=== PATIENT | female | born 1985 | race Caucasian/White ===

== ENCOUNTER → 2018-07-07 | Outpatient (CLI) | payer OTHER ==
[2018-07-07 15:37] LABS: CONTROL LINE HCG INT CTR LINE PRESENT; HCG, SERUM QUALITATIVE NEGATIVE (NEGATIVE)
[2018-07-07 15:46] LABS: ALBUMIN 3.7 GM/DL (3.2-5.2); ALBUMIN/GLOBULIN RATIO 1.16 (1.00-1.93); ALKALINE PHOSPHATASE 60 U/L (45-117); ALT/SGPT 18 U/L (12-78); ANION GAP 6 MEQ/L (8-16); AST/SGOT 11 U/L (7-37); BILIRUBIN,TOTAL 0.3 MG/DL (0.2-1.0); BLOOD UREA NITROGEN 12 MG/DL (7-18); CALCIUM LEVEL 8.9 MG/DL (8.5-10.1); CARBON DIOXIDE LEVEL 29 MEQ/L (21-32); CHLORIDE LEVEL 107 MEQ/L (98-107); CREATININE FOR GFR 0.97 MG/DL (0.55-1.30); GLOMERULAR FILTRATION RATE > 60.0 (>60); GLUCOSE, FASTING 81 MG/DL (70-100); POTASSIUM SERUM 4.3 MEQ/L (3.5-5.1); SODIUM LEVEL 142 MEQ/L (136-145); TOTAL PROTEIN 6.9 GM/DL (6.4-8.2)
[2018-07-07 15:47] LABS: HEMATOCRIT 38.4 % (36.0-47.0); HEMOGLOBIN 12.7 g/dl (12.0-15.5); MEAN CORPUSCULAR HEMOGLOBIN 29.4 pg (27.0-33.0); MEAN CORPUSCULAR HGB CONC 33.1 g/dl (32.0-36.5); MEAN CORPUSCULAR VOLUME 88.9 fl (80.0-96.0); PLATELET COUNT, AUTOMATED 263 10^3/uL (150-450); RED BLOOD COUNT 4.32 10^6/uL (4.00-5.40); RED CELL DISTRIBUTION WIDTH 12.1 % (11.5-14.5); WHITE BLOOD COUNT 4.6 10^3/uL (4.0-10.0)
[2018-07-07 16:09] LABS: HEPATITIS B SURFACE ANTIGEN NEGATIVE (NEGATIVE)
[2018-07-07 16:37] LABS: HEPATITIS C VIRUS ABY INDEX 0.1 INDEX (<0.8); HIV 1&2 SCREEN CENTAUR NEGATIVE (NEGATIVE)
[2018-07-07 16:55] LABS: CHLAMYDIA DNA AMPLIFICATION NEGATIVE (NEGATIVE); GC DNA AMPLIFICATION NEGATIVE (NEGATIVE)
== END ==
LOC: M LAB 14:25
DX: F11.20 Opioid dependence, uncomplicated (principal)
CPT/HCPCS: 93005

== ENCOUNTER 2019-03-02 10:33 | Emergency (ER) | payer OTHER ==
[~2019-03-02] VITALS: Ht 160 cm; Wt 56.9 kg
[2019-03-02] MEDS ORDERED: METH5TA PO (10:51)
[2019-03-02] MEDS ORDERED: METH10TA2 PO (10:51)
[2019-03-02] MEDS ORDERED: metroNIDAZOLE (FLAGYL) 500 MG TAB PO ONE (13:15)
[2019-03-02 13:31] VITALS: BP 113/74
[2019-03-02 14:18] LABS: CHLAMYDIA DNA AMPLIFICATION NEGATIVE (NEGATIVE); GC DNA AMPLIFICATION NEGATIVE (NEGATIVE)
== END 2019-03-02 13:34 | disposition home or self-care (01) ==
LOC: M ED 10:33
DX: O23.599 Infection of other part of genital tract in pregnancy, unspecified trimester (principal); O99.330 Smoking (tobacco) complicating pregnancy, unspecified trimester; O09.529 Supervision of elderly multigravida, unspecified trimester; Z3A.00 Weeks of gestation of pregnancy not specified; Z79.899 Other long term (current) drug therapy

== ENCOUNTER 2019-09-11 11:19 | Outpatient (CLI) | payer OTHER ==
[~2019-09-11] VITALS: Ht 160 cm; Wt 57.7 kg
[~2019-09-11 11:19] MED LIST: METH10TA2 PO; METH5TA PO
--- NOTE | 2019-09-11 12:52 | IPNPDOC ---
Text Note Date of Service The patient was seen on 09/11/19. NOTE Outpatient 34-year-old 10, para [id number] with ARJUN of 10/30/2019. Presents at 32 weeks 6 days with complaints of contractions. Formerly a patient of Dr. Acevedo, she has not been seen in that office since June and has evidently been discharged from his practice. She reports attempting to transfer care. However, her records release was not signed until the end of August. History is significant for 1 labor and delivery per chart at 36 weeks. Patient, however, reports that was at [address] Acevedo's records show poor compliance with care. Minimal weight gain with a 9 pound weight gain from first appointment and only a 6 pound weight gain from her stated prepregnancy weight. She reports tobacco use during this and also a history of oral herpes without current outbreaks. Her chart also reports a history of a positive chlamydia back in May. She is in no apparent distress. Abdomen is soft, gravid, small for dates. Nontender. heart 145. Minimal to moderate variability. Irregular mild uterine irritability. Speculum exam, cervix visually long, thick and closed. Gonorrhea, chlamydia, fibronectin, and group B strep were obtained. Sterile vaginal exam, no presenting part in the pelvis. Cervix is parous long, thick, closed. Will send previously stated cultures, UA, culture, UDS and obtain a transvaginal and growth ultrasound. Keyona Garrett CNM Sep 11, 2019 12:52
[2019-09-11 13:45] LABS: APPEARANCE, URINE CLEAR (CLEAR); BACTERIA, URINE AUTO 1+ (NEGATIVE); BILIRUBIN, URINE AUTO NEGATIVE (NEGATIVE); BLOOD, URINE BLOOD NEGATIVE (NEGATIVE); COLOR, URINE STRAW (YELLOW); GLUCOSE, URINE (UA) AUTO NEGATIVE (NEGATIVE); KETONE, URINE AUTO NEGATIVE (NEGATIVE); LEUKOCYTE ESTERASE, URINE AUTO NEGATIVE (NEGATIVE); NITRITE, URINE AUTO NEGATIVE (NEGATIVE); PROTEIN, URINE AUTO NEGATIVE (NEGATIVE); RBC, URINE AUTO 0 /HPF (0-3); SPECIFIC GRAVITY URINE AUTO 1.006 (1.002-1.035); SQUAMOUS EPITHELIAL CELL UR AU 1 /HPF (0-6); UROBILINOGEN, URINE AUTO 0.2 mg/dL (0.0-2.0); WBC, URINE AUTO 0 /HPF (0-3)
[2019-09-11 14:08] LABS: AMPHETAMINES URINE REFLEX NEGATIVE (NEGATIVE); BARBITURATES URINE REFLEX NEGATIVE (NEGATIVE); BENZODIAZEPINES URINE REFLEX NEGATIVE (NEGATIVE); COCAINE METABOLITE URINE REFLE NEGATIVE (NEGATIVE); OPIATES URINE REFLEX NEGATIVE (NEGATIVE); PHENCYCLIDINE URINE REFLEX NEGATIVE (NEGATIVE)
[2019-09-11 14:11] LABS: CANNABINOIDS URINE REFLEX PENDING CONFIRMATION (NEGATIVE); METHADONE URINE REFLEX PENDING CONFIRMATION (NEGATIVE)
--- NOTE | 2019-09-11 15:01 | IPNPDOC ---
Text Note Date of Service The patient was seen on 09/11/19. NOTE Pt desires discharge "not having contractions" FFN negative. GBS/GC/CT pending. UDS + marijuana and methadone TVUS closed 3cm cervix, no funneling Growth 12% with elevated S/D ratio, 4.66 Discharged home. Pt now has appt Saturday with Dr Amaya BPP ordered for next week Stressed need for daily FKC, stop smoking, adequate food/fluids. Stressed need to continue PN care at this time. Keyona Garrett CNM Sep 11, 2019 15:01
--- NOTE | 2019-09-11 15:03 | REP ---
OB ULTRASOUND: Real-time sonographic evaluation of the gravid uterus performed utilizing transabdominal and endovaginal technique. There is a single living intrauterine gestation. The estimated gestational age is 33 weeks 0 days, EDC 10/30/2019. Today's measurements indicate appropriate growth. BPD 78 mm = 31 weeks 1 day, 22nd percentile HC 284 mm = 31 weeks 1 day, 23rd percentile AC 270 mm = 31 weeks 1 day, 22nd percentile FL 61 mm = 31 weeks 4 days, 28th percentile HC/AC ratio 1.05, within normal range. Estimated weight 1727 grams, 12th percentile. Cervix is closed and measures 3 cm in length. heart rate 141 beats per minute. Amniotic fluid within normal limits, SAMMY 9.1, within normal range of 8.3 to 24.5. S/D ratio 4.66, above normal range of 2.0 to 3.0. RI is 0.79, above normal range of 0.59 to 0.75. SEEN/GROSSLY UNREMARKABLE Lateral ventricles yes Posterior fossa no Upper lip yes Four-chamber heart yes LVOT yes RVOT yes Stomach yes Cord insertion yes Three vessel cord yes Kidneys no Bladder yes Spine no position: Vertex. Placenta: Anterior and grade 1 with no previa or abruption. Please note the estimated gestational age is based on ultrasound from an outside facility. Electronically Signed by Miah Hilliard MD 09/15/2019 08:53 A
[2019-09-14 14:39] LABS: CHLAMYDIA DNA AMPLIFICATION NEGATIVE (NEGATIVE); GC DNA AMPLIFICATION NEGATIVE (NEGATIVE)
[2019-09-17 14:12] LABS: Cannabinoid Positive (.); GC Carboxy THC 92 ng/mL (Cutoff=10); GC Methadone 1755 ng/mL (Cutoff=100); Methadone Positive (.)
== END 2019-09-11 14:55 | disposition home or self-care (01) ==
LOC: M LDO 11:19
PROVIDERS: ATTEND Advanced Practice Midwife
DX: O26.893 Other specified pregnancy related conditions, third trimester (principal); Z3A.32 32 weeks gestation of pregnancy
CPT/HCPCS: 59025; 76811; 76817; 80307; 81001; 82731; 87081; 87086; 87491; 87591; G0480

== ENCOUNTER 2019-09-23 11:31 | Outpatient (CLI) | payer OTHER ==
[~2019-09-23] VITALS: Ht 160 cm; Wt 61.0 kg
--- NOTE | 2019-09-23 14:26 | REP ---
OB ULTRASOUND/ BIOPHYSICAL PROFILE: Real-time sonographic evaluation of the gravid uterus is performed. There is a single living intrauterine gestation. The estimated gestational age is reportedly 33 weeks 1 day based on the first ultrasound, EDC 11/10/2019. Cervix is closed and measures 3.8 cm in length. heart rate 139 beats per minute. Amniotic fluid within normal limits. SAMMY 10.9 within normal range of 8.0-24.9. Biophysical profile score is 8/8. S/D ratio 3.44 is above normal range of 2.0-3.0. RI 0.71 is within normal range of 0.59 to 0.75. position is vertex. Placenta is anterior and grade 3 with no previa or abruption. Electronically Signed by Miah Hilliard MD 09/25/2019 12:50 A
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
== END 2019-09-23 14:55 | disposition home or self-care (01) ==
LOC: M LDO 11:31
PROVIDERS: ATTEND Advanced Practice Midwife
DX: Z36.89 Encounter for other specified antenatal screening (principal); O99.333 Smoking (tobacco) complicating pregnancy, third trimester; F17.210 Nicotine dependence, cigarettes, uncomplicated; O09.513 Supervision of elderly primigravida, third trimester; Z87.898 Personal history of other specified conditions; Z3A.34 34 weeks gestation of pregnancy

== ENCOUNTER → 2019-09-24 | Outpatient (CLI) | payer OTHER ==
[~2019-09-24] MED LIST changes: +IBUP80TA PO; +METH10CO3 PO; +PERCOCET PO; +PRENTAB9 PO
--- NOTE | 2019-10-09 17:18 | REP ---
Obstetric ultrasound for growth: There is a single intrauterine gestation in a vertex presentation. There is movement and cardiac activity. The heart rate is 153 beats per minute. The placenta is anterior. There is no placenta previa or abruptio. The placenta is grade II. The amniotic fluid volume subjectively is normal. The amniotic fluid index is 9.0/7.5 - 24.4. The cervix measures 2.5 cm length. Gestational age by today's ultrasound is 33 weeks 5 days/ARJUN 11/22/2019. Gestational age by the first ultrasound is 35 weeks 3 days/ARJUN 11/10/2019. Gestational age by LMP is 37 weeks zero days'/ARJUN 10/30/2019. weight is 2372 grams/5 pounds, 3 ounces. This is the 9th percentile for 37 weeks 0 days. biophysical profile: Breathing 2.0 Movement 2.0 Tone 2.0 AFV 2.0 Total 8.0 / 8.0 Umbilical artery Doppler assessment: S/D ratio 3.54 (2.30-3.30) Resistive Index 0.717 (0.59-0.75 Diastolic Velocity 17.3 (>10 cm/sec) Middle cerebral artery Doppler assessment: PSV: 43.3 cm/sec. EDV: 14.3 cm/sec S/D: 3.17 RI: 0.68 Med PSV: 56 x 1 cm/sec . MoM 0.81 (<1.5) Electronically Signed by Miah Cordero MD 10/09/2019 05:09 P
== END ==
LOC: M RAD 06:30
PROVIDERS: ATTEND Advanced Practice Midwife
DX: O09.213 Supervision of pregnancy with history of pre-term labor, third trimester (principal); O26.843 Uterine size-date discrepancy, third trimester; Z3A.37 37 weeks gestation of pregnancy

== ENCOUNTER → 2019-10-09 | Outpatient (CLI) | payer OTHER | LOC: M RAD 14:41 | PROVIDERS: ATTEND Advanced Practice Midwife | DX: O09.213 Supervision of pregnancy with history of pre-term labor, third trimester (principal); O26.843 Uterine size-date discrepancy, third trimester; Z3A.33 33 weeks gestation of pregnancy ==

== ENCOUNTER 2019-10-14 13:24 | Inpatient (IN) | payer OTHER ==
[~2019-10-14] VITALS: Ht 160 cm; Wt 61.2 kg
[~2019-10-14 13:24] MED LIST changes: -IBUP80TA PO; -METH10CO3 PO; -PERCOCET PO; -PRENTAB9 PO
[2019-10-14 14:37] VITALS: BP 131/84
[2019-10-14] MEDS ORDERED: METH10CO3 PO (14:43)
[2019-10-14] MEDS ORDERED: PRENTAB9 PO (14:43)
[2019-10-14] MEDS ORDERED: BICITRA 30ML SOLN UDC PO ONE (15:00)
[2019-10-14] MEDS ORDERED: ceFAZolin SOD 2 GM in IV 1 EA IV ONE (15:00)
[2019-10-14] MEDS ORDERED: LR 1,000 ML IV ONE (15:30)
[2019-10-14 16:03] LABS: HEMATOCRIT 34.7 % (36.0-47.0); HEMOGLOBIN 11.5 g/dl (12.0-15.5); MEAN CORPUSCULAR HEMOGLOBIN 29.6 pg (27.0-33.0); MEAN CORPUSCULAR HGB CONC 33.1 g/dl (32.0-36.5); MEAN CORPUSCULAR VOLUME 89.2 fl (80.0-96.0); PLATELET COUNT, AUTOMATED 247 10^3/uL (150-450); RED BLOOD COUNT 3.89 10^6/uL (4.00-5.40); WHITE BLOOD COUNT 8.6 10^3/uL (4.0-10.0)
[2019-10-14 16:23] LABS: AMPHETAMINES URINE REFLEX NEGATIVE (NEGATIVE); BARBITURATES URINE REFLEX NEGATIVE (NEGATIVE); BENZODIAZEPINES URINE REFLEX NEGATIVE (NEGATIVE); COCAINE METABOLITE URINE REFLE NEGATIVE (NEGATIVE); OPIATES URINE REFLEX NEGATIVE (NEGATIVE); PHENCYCLIDINE URINE REFLEX NEGATIVE (NEGATIVE)
[2019-10-14 16:25] LABS: CANNABINOIDS URINE REFLEX PENDING CONFIRMATION (NEGATIVE); METHADONE URINE REFLEX PENDING CONFIRMATION (NEGATIVE)
[2019-10-14] MEDS ORDERED: LR 1,000 ML IV SCH ×2 (16:30→21:48)
[2019-10-14 16:55] VITALS: BP 136/79
[2019-10-14 18:48] VITALS: BP 122/72
[2019-10-14] MEDS ORDERED: MORPHINE PRES-FREE INJ 10 MG/10 ML VIAL (J2274) As Ordered ONE (19:44)
[2019-10-14] MEDS ORDERED: diphenhydrAMINE INJ 50MG/ML VIAL (J1200) IV PRN (20:40)
[2019-10-14] MEDS ORDERED: METOCLOPRAMIDE INJ 10MG/2ML VIAL (J2765) IV PRN (20:40)
[2019-10-14] MEDS ORDERED: NALBUPHINE HCL 10 MG/ML AMP (J2300) IV PRN (20:40)
[2019-10-14] MEDS ORDERED: ONDANSETRON 4MG/2ML VIAL (J2405) IV PRN ×3 (20:40→22:00)
[2019-10-14] MEDS ORDERED: NALOXONE INJ 0.4 MG/1 ML VIAL (J2310) IV PRN ×2 (20:40)
[2019-10-14] MEDS ORDERED: ONDANSETRON 4MG/2ML VIAL (J2405) As Ordered ONE ×2 (20:51→21:08)
[2019-10-14] MEDS ORDERED: dexameTHASONE 4 MG/ML 1ML VIAL (J1100) As Ordered ONE (20:51)
[2019-10-14] MEDS ORDERED: PHENYLephrine HCL 500 MCG/5 ML (100MCG/ML) SYRINGE (J2370) As Ordered ONE ×2 (21:12→21:19)
[2019-10-14] MEDS ORDERED: OXYTOCIN INJ 10 UNITS/ML VIAL (J2590) As Ordered ONE (21:35)
[2019-10-14] MEDS ORDERED: KETOROLAC 60 MG/2 ML VIAL (J1885) As Ordered ONE (21:38)
[2019-10-14] MEDS ORDERED: oxyCODONE 5MG TAB PO PRN (21:45)
[2019-10-14] MEDS ORDERED: fentaNYL 100 MCG/2 ML INJECTION (J3010) IV PRN (21:45)
[2019-10-14] MEDS ORDERED: KETOROLAC 30 MG/ML VIAL (J1885) IV PRN (21:45)
[2019-10-14] MEDS ORDERED: OXYTOCIN DRIP 30 UNITS in IV 1 EA IV SCH (21:48)
[2019-10-14] MEDS ORDERED: PROMETHAZINE 25 MG TAB PO PRN (22:00)
[2019-10-14] MEDS ORDERED: MEASLES,MUMPS,RUBELLA VACCINE INJ (MMR-II) (90707) SC SCH (22:00)
[2019-10-14] MEDS ORDERED: ACETAMINOPHEN 500 MG TAB PO PRN (22:00)
[2019-10-14] MEDS ORDERED: RHOGAM 300 MCG (1500 IU) INJ (J2790) IM SCH (22:00)
[2019-10-14] MEDS ORDERED: PERCOCET 5MG/325MG TAB PO PRN (22:00)
[2019-10-14] MEDS ORDERED: OXYTOCIN 30 UNITS IN 0.9% NaCl 500ML IV BAG (J2590) As Ordered ONE (22:08)
[2019-10-15] VITALS (9 sets, daily range): BP systolic 111–161; BP diastolic 61–87
[2019-10-15] MEDS: PERCOCET 5MG/325MG TAB PO PRN ×3 (00:11→18:21)
[2019-10-15] MEDS: KETOROLAC 30 MG/ML VIAL (J1885) IV SCH ×3 (04:02→15:58)
[2019-10-15 07:20] LABS: HEMATOCRIT 28.1 % (36.0-47.0); HEMOGLOBIN 9.6 g/dl (12.0-15.5); MEAN CORPUSCULAR HEMOGLOBIN 29.9 pg (27.0-33.0); MEAN CORPUSCULAR HGB CONC 34.2 g/dl (32.0-36.5); MEAN CORPUSCULAR VOLUME 87.5 fl (80.0-96.0); PLATELET COUNT, AUTOMATED 218 10^3/uL (150-450); RED BLOOD COUNT 3.21 10^6/uL (4.00-5.40); WHITE BLOOD COUNT 9.4 10^3/uL (4.0-10.0)
[2019-10-15] MEDS ORDERED: ADACEL/BOOSTRIX VACCINE (DIPHTH/PERTUSS/ACELL/TETANUS)0.5ML SYR (90715) IM ONE (09:00)
[2019-10-15] MEDS: PRENATAL VITAMINS CHEWABLE TABLET PO SCH (09:21)
[2019-10-15] MEDS: DOCUSATE SODIUM 100 MG CAP PO SCH ×2 (09:22→21:00)
[2019-10-15] MEDS: METHADONE 10 MG TAB (S0109) PO SCH (10:05)
[2019-10-15] MEDS: IBUPROFEN 800 MG TAB PO SCH (23:54)
[2019-10-16] MEDS: PERCOCET 5MG/325MG TAB PO PRN (01:21)
[2019-10-16 02:28] VITALS: BP 121/75
[2019-10-16 05:48] VITALS: BP 135/80
[2019-10-16] MEDS ORDERED: IBUP80TA PO (08:07)
[2019-10-16] MEDS ORDERED: PERCOCET PO (08:07)
[2019-10-16] MEDS: PRENATAL VITAMINS CHEWABLE TABLET PO SCH (09:05)
[2019-10-16] MEDS: METHADONE 10 MG TAB (S0109) PO SCH (09:05)
[2019-10-16] MEDS: DOCUSATE SODIUM 100 MG CAP PO SCH (09:05)
[2019-10-16] MEDS: IBUPROFEN 800 MG TAB PO SCH (09:08)
[2019-10-19 00:07] LABS: Cannabinoid Positive (.); GC Carboxy THC 66 ng/mL (Cutoff=10); GC Methadone 2380 ng/mL (Cutoff=100); Methadone Positive (.)
== END 2019-10-16 15:00 | disposition home or self-care (01) | DRG 540 ==
LOC: M LDI 13:24 → UNDOADMIN 13:24 → M LDI 13:57 → M OBS 23:37
PROVIDERS: ADMIT Obstetrics & Gynecology; ATTEND Obstetrics & Gynecology
PROC: 10D00Z1 Extraction of Products of Conception, Low, Open Approach (ICD-10-PCS; principal; 2019-10-14 20:57)
DX: O98.32 Other infections with a predominantly sexual mode of transmission complicating childbirth (principal); Z3A.37 37 weeks gestation of pregnancy; Z37.0 Single live birth; A60.09 Herpesviral infection of other urogenital tract; O36.5930 Maternal care for other known or suspected poor fetal growth, third trimester, not applicable or unspecified; O99.334 Smoking (tobacco) complicating childbirth; F17.210 Nicotine dependence, cigarettes, uncomplicated; Z91.14 Patient's other noncompliance with medication regimen

== ENCOUNTER → 2020-04-01 | Outpatient (CLI) | payer OTHER ==
[~2020-04-01] MED LIST changes: +IBUP80TA PO; +METH10CO3 PO; +PERCOCET PO; +PRENTAB9 PO
[2020-04-01 10:42] LABS: HEMATOCRIT 44.2 % (36.0-47.0); HEMOGLOBIN 14.7 g/dl (12.0-15.5); MEAN CORPUSCULAR HEMOGLOBIN 29.4 pg (27.0-33.0); MEAN CORPUSCULAR HGB CONC 33.3 g/dl (32.0-36.5); MEAN CORPUSCULAR VOLUME 88.4 fl (80.0-96.0); PLATELET COUNT, AUTOMATED 233 10^3/uL (150-450); WHITE BLOOD COUNT 5.5 10^3/uL (4.0-10.0)
[2020-04-01 11:07] LABS: ALBUMIN 3.9 GM/DL (3.2-5.2); ALT/SGPT 45 U/L (12-78); BILIRUBIN,TOTAL 0.3 MG/DL (0.2-1.0); BLOOD UREA NITROGEN 11 MG/DL (7-18); CALCIUM LEVEL 9.2 MG/DL (8.5-10.1); CARBON DIOXIDE LEVEL 29 MEQ/L (21-32); CHLORIDE LEVEL 105 MEQ/L (98-107); CREATININE FOR GFR 0.84 MG/DL (0.55-1.30); GLOMERULAR FILTRATION RATE > 60.0 (>60); GLUCOSE, FASTING 103 MG/DL (70-100); POTASSIUM SERUM 4.2 MEQ/L (3.5-5.1); SODIUM LEVEL 138 MEQ/L (136-145); TOTAL PROTEIN 7.1 GM/DL (6.4-8.2)
[2020-04-01 11:26] LABS: HEPATITIS B SURFACE ANTIGEN NEGATIVE (NEGATIVE)
[2020-04-01 11:54] LABS: HEPATITIS C VIRUS ABY INDEX 0.1 INDEX (<0.8); HIV 1&2 SCREEN CENTAUR NEGATIVE (NEGATIVE)
[2020-04-01 12:04] LABS: CHLAMYDIA DNA AMPLIFICATION NEGATIVE (NEGATIVE); GC DNA AMPLIFICATION NEGATIVE (NEGATIVE)
--- NOTE | 2020-04-01 16:04 | ECGEPIP ---
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
== END ==
LOC: M LAB 10:06
PROVIDERS: ATTEND Family Medicine
DX: F11.20 Opioid dependence, uncomplicated (principal)

== ENCOUNTER 2020-08-01 12:47 | Emergency (ER) | payer OTHER ==
[~2020-08-01] VITALS: Ht 160 cm; Wt 54.4 kg
[2020-08-01 12:49] VITALS: BP 137/79
[2020-08-01] MEDS ORDERED: cefTRIAXone SOD 250MG VIAL (J0696 PER 250MG) IM ONE (15:00)
[2020-08-01] MEDS ORDERED: LIDOCAINE 1% SDV 5ML VIAL DILUENT ONE (15:00)
[2020-08-01] MEDS ORDERED: AZITHROMYCIN 250MG TABLET PO ONE (15:00)
[2020-08-01] MEDS ORDERED: DIFL150T PO (15:21)
[2020-08-01 15:26] LABS: HEPATITIS A ANTIBODY IGM NEGATIVE (NEGATIVE); HEPATITIS B CORE ANTIBODY IGM NEGATIVE (NEGATIVE); HEPATITIS B SURFACE ANTIGEN NEGATIVE (NEGATIVE); HEPATITIS C VIRUS ABY INDEX 0.2 INDEX (<0.8)
[2020-08-01 16:34] LABS: CHLAMYDIA DNA AMPLIFICATION POSITIVE (NEGATIVE); GC DNA AMPLIFICATION POSITIVE (NEGATIVE)
== END 2020-08-01 15:22 | disposition home or self-care (01) ==
LOC: M ED 12:47
DX: Z11.3 Encounter for screening for infections with a predominantly sexual mode of transmission (principal); J45.909 Unspecified asthma, uncomplicated; Z86.718 Personal history of other venous thrombosis and embolism; F17.200 Nicotine dependence, unspecified, uncomplicated; Z79.899 Other long term (current) drug therapy
CPT/HCPCS: 86705; 86709; 86780; 86803; 87210; 87340; 87661; 96372; 99284; J0696

== ENCOUNTER 2020-08-23 07:57 | Emergency (ER) | payer OTHER ==
[~2020-08-23] VITALS: Ht 160 cm; Wt 53.7 kg
[~2020-08-23 07:57] MED LIST changes: +DIFL150T PO
[2020-08-23 07:59] VITALS: BP 114/63
[2020-08-23] MEDS ORDERED: METH10TA2 PO (08:08)
[2020-08-23] MEDS ORDERED: ACETAMINOPHEN 325 MG TAB PO ONE (08:45)
[2020-08-23] MEDS ORDERED: NS 1,000 ML IV ONE (08:45)
[2020-08-23 09:24] LABS: BASO % 0.3 % (0.0-1.0); EOS # 0.1 10^3/uL (0.0-0.5); EOS % 0.5 % (0.0-3.0); HEMATOCRIT 39.3 % (36.0-47.0); HEMOGLOBIN 13.3 g/dl (12.0-15.5); LYMPH # 1.8 10^3/uL (1.5-5.0); LYMPH % 13.7 % (24.0-44.0); MEAN CORPUSCULAR HEMOGLOBIN 30.2 pg (27.0-33.0); MEAN CORPUSCULAR HGB CONC 33.8 g/dl (32.0-36.5); MEAN CORPUSCULAR VOLUME 89.3 fl (80.0-96.0); MONO # 0.6 10^3/uL (0.0-0.8); MONO % 4.3 % (0.0-5.0); NEUTROPHILS # 10.4 10^3/uL (1.5-8.5); NEUTROPHILS % 80.8 % (36.0-66.0); PLATELET COUNT, AUTOMATED 255 10^3/uL (150-450); WHITE BLOOD COUNT 12.9 10^3/uL (4.0-10.0)
[2020-08-23] MEDS ORDERED: KETOROLAC 30 MG/ML 1ML VIAL IV ONE (09:30)
[2020-08-23 10:00] LABS: ALBUMIN 3.7 GM/DL (3.2-5.2); BILIRUBIN,DIRECT 0.2 MG/DL (0.0-0.2); BILIRUBIN,TOTAL 0.5 MG/DL (0.2-1.0); TOTAL PROTEIN 6.7 GM/DL (6.4-8.2)
--- NOTE | 2020-08-23 11:02 | REPVR ---
PROCEDURE INFORMATION: Exam: CT Abdomen And Pelvis Without Contrast Exam date and time: 08/23/2020 10:31 AM Age: 35 years old Clinical indication: Abdominal pain; Generalized; Additional info: B/l low back/flank pain, hematuria, h/o kidney stones TECHNIQUE: Imaging protocol: Computed tomography of the abdomen and pelvis without contrast. Radiation optimization: All CT scans at this facility use at least one of these dose optimization techniques: automated exposure control; mA and/or kV adjustment per patient size (includes targeted exams where dose is matched to clinical indication); or iterative reconstruction. COMPARISON: US OBS FOLL UP OR REPEAT EACH GES 10/09/2019 3:21 PM FINDINGS: Liver: Normal. No mass. Gallbladder and bile ducts: Normal. No calcified stones. No ductal dilation. Pancreas: Normal. No ductal dilation. Spleen: The spleen demonstrates several small calcifications consistent with healed granulomatous disease. Adrenals: Normal. No mass. Kidneys and ureters: Right renal calculi (approximately 16), the largest in the anterior lower pole measuring approximately 3.9 mm. Left renal calculi (approximately 10), the largest in the anterolateral mid kidney measuring 2.8 mm. No evidence of obstructive uropathy. 13 mm left renal upper pole probable benign cyst, additional 8.5 mm left renal probable benign cyst. Right renal 8 mm probable benign cyst. Left renal 12 mm benign parapelvic cyst. Stomach and bowel: Unremarkable. No obstruction. No mucosal thickening. Appendix: The vermiform appendix is not identified on this examination. There is, however, no pericecal abnormality to suggest appendicitis. Intraperitoneal space: Unremarkable. No free air. No significant fluid collection. Vasculature: Unremarkable. No abdominal aortic aneurysm. Lymph nodes: No enlarged lymph nodes. Bladder: The urinary bladder is decompressed and difficult to assess. No calculi. Reproductive: Unremarkable as visualized. Bones/joints: L4-L5 degenerative disc disease. Soft tissues: Unremarkable. IMPRESSION: 1. Bilateral renal calyceal lithiasis. 2. Bilateral renal probable benign cysts. 3. Left renal benign parapelvic cyst. Electronically signed by: Erik Genao On 08/23/2020 11:02:32 AM
== END 2020-08-23 10:42 | disposition left against medical advice (07) ==
LOC: M ED 07:57
DX: Z87.442 Personal history of urinary calculi (principal); Z87.448 Personal history of other diseases of urinary system; J45.909 Unspecified asthma, uncomplicated; F17.200 Nicotine dependence, unspecified, uncomplicated; Z53.9 Procedure and treatment not carried out, unspecified reason; Z79.899 Other long term (current) drug therapy
CPT/HCPCS: 36415; 74176; 80047; 80076; 81001; 83690; 84702; 85025; 87088; 87186; 96361; 96374; 99284; J1885

== ENCOUNTER → 2020-09-14 | Outpatient (REF) | payer OTHER ==
[2020-09-14 17:28] LABS: BASO % 0.6 % (0.0-1.0); EOS % 0.6 % (0.0-3.0); HEMATOCRIT 41.2 % (36.0-47.0); LYMPH # 2.7 10^3/uL (1.5-5.0); LYMPH % 39.6 % (24.0-44.0); MEAN CORPUSCULAR HEMOGLOBIN 30.4 pg (27.0-33.0); MEAN CORPUSCULAR VOLUME 89.4 fl (80.0-96.0); MONO # 0.3 10^3/uL (0.0-0.8); MONO % 4.3 % (0.0-5.0); NEUTROPHILS # 3.7 10^3/uL (1.5-8.5); NEUTROPHILS % 54.8 % (36.0-66.0); PLATELET COUNT, AUTOMATED 310 10^3/uL (150-450); RED BLOOD COUNT 4.61 10^6/uL (4.00-5.40); WHITE BLOOD COUNT 6.7 10^3/uL (4.0-10.0)
[2020-09-14 17:30] LABS: HEMOGLOBIN A1c 5.4 %
[2020-09-14 17:41] LABS: ALBUMIN 4.1 GM/DL (3.2-5.2); ALT/SGPT 20 U/L (12-78); BILIRUBIN,TOTAL 0.4 MG/DL (0.2-1.0); BLOOD UREA NITROGEN 12 MG/DL (7-18); CALCIUM LEVEL 8.9 MG/DL (8.5-10.1); CARBON DIOXIDE LEVEL 27 MEQ/L (21-32); CHLORIDE LEVEL 104 MEQ/L (98-107); CHOLESTEROL LEVEL 197 MG/DL (<200); CHOLESTEROL RISK RATIO 2.814 (<5); CREATININE FOR GFR 0.86 MG/DL (0.55-1.30); FERRITIN 12 NG/ML (8-252); FREE T4 0.98 NG/DL (0.76-1.46); GLOMERULAR FILTRATION RATE > 60.0 (>60); GLUCOSE, FASTING 96 MG/DL (70-100); HDL CHOLESTEROL 70 MG/DL (>40); IRON (FE) 69 UG/DL (50-170); LDL CHOLESTEROL 118 MG/DL (<100); NON-HDL-C 127 MG/DL; POTASSIUM SERUM 4.8 MEQ/L (3.5-5.1); SODIUM LEVEL 136 MEQ/L (136-145); TOTAL PROTEIN 7.3 GM/DL (6.4-8.2); TRIGLYCERIDES LEVEL 47 MG/DL (<150)
[2020-09-14 17:43] LABS: TOTAL 25(OH) VITAMIN D 17.1 NG/ML (30.0-100.0); VITAMIN B12 LEVEL 1015 PG/ML (247-911)
[2020-09-14 17:44] LABS: FOLATE 3.3 NG/ML (>5.4)
[2020-09-14 18:53] LABS: APPEARANCE, URINE HAZY (CLEAR); BACTERIA, URINE AUTO 1+ (NEGATIVE); BILIRUBIN, URINE AUTO NEGATIVE (NEGATIVE); BLOOD, URINE BLOOD 2+ (NEGATIVE); COLOR, URINE YELLOW (YELLOW); GLUCOSE, URINE (UA) AUTO NEGATIVE (NEGATIVE); KETONE, URINE AUTO NEGATIVE (NEGATIVE); LEUKOCYTE ESTERASE, URINE AUTO 3+ (NEGATIVE); MUCUS, URINE SMALL (NEGATIVE); NITRITE, URINE AUTO NEGATIVE (NEGATIVE); PROTEIN, URINE AUTO NEGATIVE (NEGATIVE); RBC, URINE AUTO 12 /HPF (0-3); SPECIFIC GRAVITY URINE AUTO 1.015 (1.002-1.035); SQUAMOUS EPITHELIAL CELL UR AU 0 /HPF (0-6); UROBILINOGEN, URINE AUTO 0.2 mg/dL (0.0-2.0); WBC, URINE AUTO 81 /HPF (0-3)
== END ==
LOC: M LAB REF 16:21
PROVIDERS: ATTEND Nurse Practitioner Family
DX: R31.9 Hematuria, unspecified (principal); Z13.29 Encounter for screening for other suspected endocrine disorder; Z13.9 Encounter for screening, unspecified; R30.0 Dysuria

== ENCOUNTER → 2021-02-22 | Outpatient (REF) | payer OTHER ==
[2021-02-22 13:45] LABS: HEMATOCRIT 38.4 % (36.0-47.0); HEMOGLOBIN 12.7 g/dl (12.0-15.5); MEAN CORPUSCULAR HEMOGLOBIN 29.3 pg (27.0-33.0); MEAN CORPUSCULAR HGB CONC 33.1 g/dl (32.0-36.5); MEAN CORPUSCULAR VOLUME 88.5 fl (80.0-96.0); PLATELET COUNT, AUTOMATED 251 10^3/uL (150-450); RED BLOOD COUNT 4.34 10^6/uL (4.00-5.40); WHITE BLOOD COUNT 7.6 10^3/uL (4.0-10.0)
[2021-02-22 14:51] LABS: HEPATITIS C VIRUS ABY INDEX < 0.0 INDEX (<0.8); HIV 1&2 SCREEN CENTAUR NEGATIVE (NEGATIVE)
== END ==
LOC: M PLALAB 10:46
PROVIDERS: ATTEND Obstetrics & Gynecology
DX: O09.41 Supervision of pregnancy with grand multiparity, first trimester (principal)

== ENCOUNTER → 2021-04-20 | Outpatient (CLI) | payer OTHER ==
--- NOTE | 2021-04-20 10:04 | REP ---
INDICATION: ANATOMY COMPARISON: None. TECHNIQUE: Transabdominal obstetrical ultrasound with color Doppler evaluation. FINDINGS: Examination demonstrates a single live intrauterine in breech presentation. motion is identified by technologist. Placenta is noted anterior and grade 0 without evidence for placenta previa or abruption. Amniotic fluid volume is normal. Cervix measures 3.1 cm in length and appears closed.. Gestational age by LMP 19 weeks 2 days with ARJUN 09/12/2021. Gestational age by current measurements 19 weeks 1 day with ARJUN 09/13/2021. FHR equals 149 beats per minute. Estimated weight 297 grams (60thpercentile). Anatomical assessment demonstrates normal structures including cranium, choroid plexus, cavum, cerebellum/posterior fossa, facial features, lungs, four-chamber heart, diaphragm, stomach, cord insertion/three-vessel cord, kidneys/bladder, and extremities. IMPRESSION: 1. Single live intrauterine in breech presentation demonstrating appropriate estimated weight. 2. Limited evaluation of the spine and echogenic focus in the left cardiac ventricle may warrant follow-up. Remainder of the anatomical assessment is complete and normal. <Electronically signed by Prashanth Muhammad > 04/20/21 1000
== END ==
LOC: M WHC 08:03
PROVIDERS: ATTEND Obstetrics & Gynecology
DX: O09.522 Supervision of elderly multigravida, second trimester (principal); O32.1XX0 Maternal care for breech presentation, not applicable or unspecified; Z3A.19 19 weeks gestation of pregnancy

== ENCOUNTER 2021-05-15 13:44 | Emergency (ER) | payer OTHER ==
[2021-05-15 13:44] VITALS: BP 147/86
[~2021-05-15 13:44] MED LIST changes: +METH-1177 PO; -METH10TA2 PO
== END 2021-05-15 14:09 | disposition admitted as inpatient to this hospital (09) ==
LOC: M ED 13:44
DX: Z53.21 Procedure and treatment not carried out due to patient leaving prior to being seen by health care provider (principal)

== ENCOUNTER 2021-05-15 14:04 | Outpatient (CLI) | payer SELFPAY ==
[~2021-05-15] VITALS: Ht 160 cm; Wt 52.6 kg
[~2021-05-15 14:04] MED LIST changes: -METH-1177 PO; +METH10TA2 PO
[2021-05-15 14:23] VITALS: BP 127/71
[2021-05-15] MEDS ORDERED: LACTATED RINGER'S 1000 ML IV ONE (14:30)
[2021-05-15] MEDS ORDERED: ACETAMINOPHEN 500 MG TAB PO PRN (15:15)
--- NOTE | 2021-05-15 15:17 | IPNPDOC ---
Text Note Date of Service The patient was seen on 05/15/21. NOTE Subjective: OB Hx: PMHx: Surgical Hx: FHx: Social Hx: Objective: VS, labs, and renal sono: see below. General: Alert Respiratory: Regular rate and rhythm Abdomen: gravid with fundus 2 finger-breaths above umbilicus, soft and not tender to touch Musculoskeletal: +CVA tenderness right flank Assessment: IUP at 22.6 weeks gestation, kidney stones Plan: Reviewed findings with Dr. Acevedo and plan formulated. Start saline lock, urine obtained, LR 1 liter bolus then at 125/hr, renal sono, Toradol IV every 6 hours to help with pain and Tylenol PO due to Methadone use. Zofran ordered IV for nausea. Flomax to be started. GRACIELA MELO CNM May 15, 2021 15:17
[2021-05-15 15:32] LABS: HEMATOCRIT 39.1 % (36.0-47.0); HEMOGLOBIN 13.4 g/dl (12.0-15.5); MEAN CORPUSCULAR HEMOGLOBIN 30.7 pg (27.0-33.0); MEAN CORPUSCULAR HGB CONC 34.3 g/dl (32.0-36.5); MEAN CORPUSCULAR VOLUME 89.7 fl (80.0-96.0); PLATELET COUNT, AUTOMATED 309 10^3/uL (150-450); RED BLOOD COUNT 4.36 10^6/uL (4.00-5.40); WHITE BLOOD COUNT 14.8 10^3/uL (4.0-10.0)
[2021-05-15] MEDS: ONDANSETRON 4MG/2ML VIAL IV PRN ×2 (15:33→19:12)
[2021-05-15] MEDS: KETOROLAC 30 MG/ML 1ML VIAL IV SCH ×2 (15:33→21:55)
[2021-05-15] MEDS: LR 1,000 ML IV SCH ×2 (15:33→22:30)
--- NOTE | 2021-05-15 15:46 | REP ---
INDICATION: right flank pain with hematuria. COMPARISON: None. TECHNIQUE: Bilateral renal ultrasound FINDINGS: Multiple ultrasonographic images of the right kidney show the right kidney to measure 11.9 x 6.4 x 6.1 cm. The renal cortical echotexture is unremarkable. There are no masses. There is good corticomedullary differentiation. There is mild hydronephrosis. There are no perinephric fluid collections. There is an echogenic focus seen in the inferior pole measuring 6 mm. The right renal RI is 0.59 Multiple ultrasonographic images of the left kidney show the left kidney to measure 11.9 x 5.4 x 5.7 cm . The renal cortical echotexture is unremarkable. There are no masses. There is a 1.5 cm sized anechoic structure seen in the superior pole region which exhibits posterior wall enhancement and increased through transmission without septations or this mural nodules. The technologist has also measured a tiny dilated calyx measuring 5 mm could represent a tiny cyst. There is good corticomedullary differentiation. There is no hydronephrosis. There are no perinephric fluid collections. The left renal RI is 0.65 IMPRESSION: 1. Mild right-sided hydronephrosis etiology uncertain. Follow-up is suggested. There is a 6 mm size calculus in the inferior pole. 2. Simple left renal cyst. <Electronically signed by Luis Carlos Frederick > 05/15/21 2078
[2021-05-15 17:27] VITALS: BP 111/57
[2021-05-15] MEDS ORDERED: ACETAMINOPHEN *IV* 1,000 MG in IV 1 EA IV ONE (18:00)
[2021-05-15] MEDS ORDERED: ACETAMINOPHEN 1000MG 100ML IV BTL (OFIRMEV) (J0131 PER 10MG) As Ordered ONE (18:08)
[2021-05-15] MEDS: TAMSULOSIN 0.4 MG CAP PO SCH (20:49)
[2021-05-15] MEDS: PROMETHAZINE INJ 25 MG/ML VIAL (J2550) IV PRN (22:48)
[2021-05-15 23:09] VITALS: BP 118/71
[2021-05-15] MEDS ORDERED: METHADONE 10 MG TAB (S0109) PO ONE ×2 (23:50→23:55)
[2021-05-15] MEDS ORDERED: cefTRIAXone SOD 2 GM in D5W MINI-BAG PLUS 50 ML IV ONE (23:50)
[2021-05-16 03:44] VITALS: BP 135/85
[2021-05-16] MEDS: ONDANSETRON 4MG/2ML VIAL IV PRN ×2 (03:48→09:38)
[2021-05-16] MEDS: KETOROLAC 30 MG/ML 1ML VIAL IV SCH ×2 (03:52→09:39)
[2021-05-16] MEDS: PROMETHAZINE INJ 25 MG/ML VIAL (J2550) IV PRN (07:17)
[2021-05-16 08:16] VITALS: BP 123/62
[2021-05-16] MEDS: TAMSULOSIN 0.4 MG CAP PO SCH (08:16)
[2021-05-16] MEDS: LR 1,000 ML IV SCH (08:17)
--- NOTE | 2021-05-16 09:37 | IPNPDOC ---
Obstetrical Progress Note Date of Service May 16, 2021 Subjective 36 yo at 23 0/7 weeks with right renal stone noted on ultrasound .Her right flank pain has resolved overnight. Her urine is not just slightly blood tinged. Objective Vital Signs Date Time Temp Pulse Resp B/P (MAP) Pulse Ox O2 Delivery O2 Flow Rate FiO2 05/16/21 08:16 99.0 80 18 123/62 (82) Assessment Variability: Moderate Accelerations: Positive Decelerations: None Heart Rate Tracing: Category I Tocometer Contractions: No Assessment and Plan Status: Reassuring Additional Comments No CVA tenderness 36 yo at 23 weeks with symptomatic right nephrolithiasis. Symptoms now resolved Pt can be discharged home Encourage fluid intake f-u office as scheduled No need for urology consult at this time because symptoms have resolved DON SOLORZANO MD May 16, 2021 09:37
== END 2021-05-16 10:00 | disposition home or self-care (01) ==
LOC: M LDO 14:04
PROVIDERS: ATTEND Advanced Practice Midwife
DX: O26.892 Other specified pregnancy related conditions, second trimester (principal); R31.0 Gross hematuria; Z3A.23 23 weeks gestation of pregnancy; N20.0 Calculus of kidney
CPT/HCPCS: 76775; 81001; 85027; 87086; G0378; G0463; J0131; J0696; J1885; J2405

== ENCOUNTER → 2021-05-19 | Outpatient (CLI) | payer OTHER ==
--- NOTE | 2021-05-19 09:23 | REP ---
INDICATION: F/U ANATOMY COMPARISON: 04/20/2021 TECHNIQUE: Transabdominal obstetrical ultrasound with color Doppler evaluation. FINDINGS: Examination demonstrates a single live intrauterine in breech presentation. motion is identified by technologist. Placenta is noted anterior and grade 1 without evidence for placenta previa or abruption. Amniotic fluid volume is normal. Cervix measures 3.2 cm in length and appears closed.. Selected gestational age: Twenty-three weeks 3 days with ARJUN 09/12/2021. Gestational age by current measurements 23 weeks 3 days with ARJUN 09/12/2021. FHR equals 139 beats per minute. Estimated weight 584 grams (37thpercentile). Anatomical assessment demonstrates normal structures including spine and left cardiac ventricular outflow tract (previously noted echogenic focus no longer visible). IMPRESSION: Single live intrauterine in breech presentation demonstrating appropriate estimated weight. In conjunction with prior examination anatomical assessment is complete and normal. <Electronically signed by Prashanth Muhammad > 05/19/21 0936
== END ==
LOC: M WHC 08:12
PROVIDERS: ATTEND Obstetrics & Gynecology
DX: O09.522 Supervision of elderly multigravida, second trimester (principal); O32.1XX0 Maternal care for breech presentation, not applicable or unspecified; Z3A.23 23 weeks gestation of pregnancy

== ENCOUNTER → 2021-07-05 | Outpatient (CLI) | payer OTHER | LOC: M WHC 13:45 | PROVIDERS: ATTEND Obstetrics & Gynecology | DX: O26.843 Uterine size-date discrepancy, third trimester (principal); Z53.9 Procedure and treatment not carried out, unspecified reason ==

== ENCOUNTER → 2021-07-13 | Outpatient (CLI) | payer OTHER ==
[~2021-07-13] MED LIST changes: +METH-1177 PO; -METH10TA2 PO
--- NOTE | 2021-07-13 16:01 | REP ---
INDICATION: UTERINE SIZE DATE DISCREPANCY. COMPARISON: None. TECHNIQUE: Transabdominal FINDINGS: Multiple ultrasonographic images of the gravid uterus shows a single living intrauterine gestation in the cephalic presentation. Doppler interrogation of the heart shows a heart rate of 142 beats per minute. The placenta is anterior and not low-lying. The cervix measures 3.9 cm length and is closed. The subjective amniotic fluid volume is within normal limits. The calculated amniotic fluid index is 14.3 within expected range 8.7 to 23.9. BPD: 7.8 cm 31 weeks 2 days HC: 28.8 cm 31 weeks 5 days AC: 27.7 cm 31 weeks 5 days FL: 6 cm 31 weeks 2 days The estimated weight is 1786 g which is at the 46 percentile for 31 week 2 day gestational age. IMPRESSION: Single living intrauterine gestation as described above with an estimated gestational age of 31 weeks 3 days via composite criteria and an estimated date of delivery of 09/11/2021 by today's exam. <Electronically signed by Luis Carlos Frederick > 07/13/21 [id number]
== END ==
LOC: M WHC 14:33
PROVIDERS: ATTEND Obstetrics & Gynecology
DX: O26.843 Uterine size-date discrepancy, third trimester (principal); Z3A.31 31 weeks gestation of pregnancy

== ENCOUNTER → 2021-07-18 | Outpatient (REF) | payer OTHER | LOC: M SFHCWAGY 12:36 | PROVIDERS: ATTEND Advanced Practice Midwife | DX: N39.0 Urinary tract infection, site not specified (principal) ==

== ENCOUNTER → 2021-08-14 | Outpatient (CLI) | payer OTHER ==
--- NOTE | 2021-08-15 08:42 | REP ---
INDICATION: GROWTH/SIZE/DATE DISCREPANCY COMPARISON: 07/13/2021 TECHNIQUE: Transabdominal obstetrical ultrasound with color Doppler evaluation. FINDINGS: Examination demonstrates a single live intrauterine in cephalic presentation. motion is identified by technologist. Placenta is noted anterior and grade 2 without evidence for placenta previa or abruption. Amniotic fluid volume is normal. Cervix measures 4.7 cm in length and appears closed.. Selected gestational age: 35 weeks 6 days with ARJUN 09/12/2021. Gestational age by current measurements 35 weeks 2 days with ARJUN 09/16/2021. FHR equals 142 beats per minute. BPD: 8.8 cm at 35 weeks 3 days HC: 31.2 cm at 34 weeks 6 days AC: 31.2 cm at 35 weeks 1 day FL: 6.8 cm at 35 weeks 0 days HL: 6.2 cm at 36 weeks 0 days HC/AC: 1.00 Estimated weight 2594 grams (30thpercentile). SAMMY: 12.6 cm Umbilical artery SD ratio: 2.49 IMPRESSION: Single live advanced gestation in cephalic presentation demonstrating appropriate amniotic fluid volume and interval growth/estimated weight. <Electronically signed by Prashanth Muhammad > 08/15/21 0828
== END ==
LOC: M WHC 13:42
PROVIDERS: ATTEND Obstetrics & Gynecology
DX: O26.843 Uterine size-date discrepancy, third trimester (principal); Z3A.35 35 weeks gestation of pregnancy

== ENCOUNTER → 2021-08-16 | Outpatient (REF) | payer OTHER | LOC: M SFHCWAGY 12:46 | PROVIDERS: ATTEND Obstetrics & Gynecology | DX: Z36.85 Encounter for antenatal screening for Streptococcus B (principal); Z3A.36 36 weeks gestation of pregnancy ==

== ENCOUNTER → 2021-11-30 | Outpatient (CLI) | payer OTHER ==
[~2021-11-30] MED LIST changes: +PREN1CHW6 PO; +VALA500T5 PO
[2021-11-30 12:00] LABS: HEMATOCRIT 44.2 % (36.0-47.0); HEMOGLOBIN 14.6 g/dl (12.0-15.5); MEAN CORPUSCULAR VOLUME 87.7 fl (80.0-96.0); PLATELET COUNT, AUTOMATED 269 10^3/uL (150-450); RED BLOOD COUNT 5.04 10^6/uL (4.00-5.40)
[2021-11-30 12:27] LABS: ALBUMIN 4.2 GM/DL (3.2-5.2); ALT/SGPT 28 U/L (12-78); BILIRUBIN,TOTAL 0.3 MG/DL (0.2-1.0); BLOOD UREA NITROGEN 9 MG/DL (7-18); CALCIUM LEVEL 9.4 MG/DL (8.5-10.1); CARBON DIOXIDE LEVEL 30 MEQ/L (21-32); CHLORIDE LEVEL 104 MEQ/L (98-107); CREATININE FOR GFR 0.93 MG/DL (0.55-1.30); GLOMERULAR FILTRATION RATE > 60.0 (>60); GLUCOSE, FASTING 107 MG/DL (70-100); POTASSIUM SERUM 4.2 MEQ/L (3.5-5.1); SODIUM LEVEL 137 MEQ/L (136-145); TOTAL PROTEIN 7.5 GM/DL (6.4-8.2)
[2021-11-30 14:09] LABS: GC DNA AMPLIFICATION NEGATIVE (NEGATIVE)
[2021-11-30 15:29] LABS: HCG, SERUM QUALITATIVE NEGATIVE (NEGATIVE)
[2021-11-30 15:38] LABS: HEPATITIS B SURFACE ANTIGEN NEGATIVE (NEGATIVE)
[2021-11-30 16:07] LABS: HEPATITIS C VIRUS ABY INDEX 0.1 INDEX (<0.8); HIV 1&2 SCREEN CENTAUR NEGATIVE (NEGATIVE)
--- NOTE | 2021-12-01 08:08 | ECGEPIP ---
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
== END ==
LOC: M EKG 11:07
PROVIDERS: ATTEND Family Medicine
DX: F11.20 Opioid dependence, uncomplicated (principal); R00.1 Bradycardia, unspecified; I45.10 Unspecified right bundle-branch block

== ENCOUNTER 2022-08-05 10:41 | Emergency (ER) | payer OTHER ==
[~2022-08-05] VITALS: Ht 160 cm; Wt 52.7 kg
[2022-08-05] MEDS ORDERED: NS 1,000 ML IV ONE (13:00)
[2022-08-05] MEDS ORDERED: KETOROLAC 30 MG/ML 1ML VIAL IV ONE (13:00)
[2022-08-05 13:53] LABS: BASO % 0.4 % (0.0-1.0); EOS % 0.2 % (0.0-3.0); HEMATOCRIT 39.4 % (36.0-47.0); HEMOGLOBIN 13.2 g/dl (12.0-15.5); LYMPH % 30.6 % (24.0-44.0); MEAN CORPUSCULAR HEMOGLOBIN 31.2 pg (27.0-33.0); MEAN CORPUSCULAR HGB CONC 33.5 g/dl (32.0-36.5); MEAN CORPUSCULAR VOLUME 93.1 fl (80.0-96.0); MONO # 0.4 10^3/uL (0.0-0.8); MONO % 4.1 % (2.0-8.0); NEUTROPHILS # 6.2 10^3/uL (1.5-8.5); NEUTROPHILS % 64.1 % (36.0-66.0); PLATELET COUNT, AUTOMATED 266 10^3/uL (150-450); RED BLOOD COUNT 4.23 10^6/uL (4.00-5.40); WHITE BLOOD COUNT 9.7 10^3/uL (4.0-10.0)
[2022-08-05] MEDS ORDERED: ISOVUE-370 76% 100ML VIAL As Ordered ONE (14:09)
[2022-08-05 14:24] LABS: ALBUMIN 3.4 GM/DL (3.2-5.2); BILIRUBIN,DIRECT 0.1 MG/DL (0.0-0.2); BILIRUBIN,TOTAL 0.3 MG/DL (0.2-1.0); TOTAL PROTEIN 6.7 GM/DL (6.4-8.2)
[2022-08-05 15:20] VITALS: BP 107/57
== END 2022-08-05 15:24 | disposition home or self-care (01) ==
LOC: M ED 10:41
DX: K52.9 Noninfective gastroenteritis and colitis, unspecified (principal); J45.909 Unspecified asthma, uncomplicated; Z87.442 Personal history of urinary calculi; Z86.718 Personal history of other venous thrombosis and embolism; F17.200 Nicotine dependence, unspecified, uncomplicated; Z79.899 Other long term (current) drug therapy
CPT/HCPCS: 74177; 80047; 80076; 81000; 81015; 83690; 84702; 85025; 87086; 96361; 96374; 99284; J1885; Q9967

== ENCOUNTER → 2022-08-08 | Outpatient (REF) | payer OTHER | LOC: M LAB REF 10:16 | PROVIDERS: ATTEND Physician Assistant | DX: K52.9 Noninfective gastroenteritis and colitis, unspecified (principal) ==

== ENCOUNTER 2024-03-03 11:01 | Emergency (ER) | payer OTHER ==
[~2024-03-03] VITALS: Ht 160 cm; Wt 54.4 kg
[2024-03-03 12:39] LABS: BASO % 0.5 % (0.0-1.0); EOS % 0.2 % (0.0-3.0); HEMATOCRIT 41.3 % (36.0-47.0); HEMOGLOBIN 13.9 g/dl (12.0-15.5); LYMPH # 2.9 10^3/uL (1.5-5.0); LYMPH % 34.9 % (24.0-44.0); MEAN CORPUSCULAR HEMOGLOBIN 31.4 pg (27.0-33.0); MEAN CORPUSCULAR HGB CONC 33.7 g/dl (32.0-36.5); MEAN CORPUSCULAR VOLUME 93.2 fl (80.0-96.0); MONO # 0.3 10^3/uL (0.0-0.8); NEUTROPHILS # 5.1 10^3/uL (1.5-8.5); NEUTROPHILS % 60.2 % (36.0-66.0); PLATELET COUNT, AUTOMATED 289 10^3/uL (150-450); RED BLOOD COUNT 4.43 10^6/uL (4.00-5.40); WHITE BLOOD COUNT 8.4 10^3/uL (4.0-10.0)
[2024-03-03 13:07] LABS: LIPASE 25 U/L (12-53)
[2024-03-03 13:10] LABS: ALBUMIN 3.8 G/DL (3.2-5.2); ALKALINE PHOSPHATASE 49 U/L (46-116); ALT/SGPT 14 U/L (7.0-40); AST/SGOT 14 U/L (<34); BILIRUBIN,DIRECT 0.1 MG/DL (<0.4); BILIRUBIN,TOTAL 0.3 MG/DL (0.3-1.2); BLOOD UREA NITROGEN 13 MG/DL (9-23); CALCIUM LEVEL 8.8 MG/DL (8.5-10.1); CARBON DIOXIDE LEVEL 28 MMOL/L (20-31); CHLORIDE LEVEL 107 MMOL/L (98-107); CREATININE FOR GFR 0.71 MG/DL (0.55-1.30); GLOMERULAR FILTRATION RATE > 60.0 (>58); GLUCOSE, FASTING 96 MG/DL (60-100); POTASSIUM SERUM 4.2 MMOL/L (3.5-5.1); SODIUM LEVEL 135 MMOL/L (136-145); TOTAL PROTEIN 6.6 G/DL (5.7-8.2)
[2024-03-03 13:12] LABS: HCG, SERUM QUALITATIVE NEGATIVE (NEGATIVE)
[2024-03-03] MEDS: KETOROLAC 30 MG/ML 1ML VIAL IM ONE (15:17)
[2024-03-03 15:28] VITALS: BP 149/70; TEMP 98; O2SAT 96
== END 2024-03-03 15:31 | disposition home or self-care (01) ==
LOC: M ED 13:42
DX: R07.81 Pleurodynia (principal); R91.1 Solitary pulmonary nodule; Z87.442 Personal history of urinary calculi; Z86.718 Personal history of other venous thrombosis and embolism; F17.200 Nicotine dependence, unspecified, uncomplicated; Z79.899 Other long term (current) drug therapy
CPT/HCPCS: 71101; 80048; 80076; 81001; 83690; 84703; 85025; 87086; 96372; 99284; J1885